=== PATIENT | male | born 1995 | race African-American/Black ===

== ENCOUNTER 2024-10-31 15:19 | Emergency (ER) | payer MEDICAID ==
[~2024-10-31] VITALS: Ht 172.7 cm; Wt 70.0 kg
[2024-10-31 15:21] VITALS: BP 130/82; PULSE 78; RESP 18; TEMP 36.7; O2SAT 100
== END 2024-10-31 20:55 | disposition left against medical advice (07) ==
LOC: ER 15:19
DX: R51.9 Headache, unspecified (principal); Z53.21 Procedure and treatment not carried out due to patient leaving prior to being seen by health care provider